=== PATIENT | male | born 1935 | race Caucasian/White ===

== ENCOUNTER 2017-02-21 | Emergency (ER) | payer MEDICARE, BC ==
[~2017-02-21] VITALS: Ht 167.6 cm; Wt 56.7 kg
[~2017-02-21] MED LIST: CELEBREX200 MG ORAL; HYDROCORTISONE TP; KEFLEX500 MG ORAL; VALACYCLOVIR500 MG ORAL; VALTREX1000 MG PO; ZOVIRAX OINT1 APPLI1 TOPIC
[2017-02-21] MEDS ORDERED: NKM (00:11)
[2017-02-21 00:55] VITALS: BP 148/74
[2017-02-21 00:56] VITALS: BP 148/74
--- NOTE | 2017-02-21 02:01 | Emergency Room Report ---
History of Present Illness General Chief Complaint: Laceration Source: Patient, Family Member Present Illness HPI 81-year-old male presents ED with laceration to face. States that he was closing the garage door tonight when the door accidentally hit him in the head. No reported LOC. Tetanus is up-to-date. Denies any headaches, blurry vision , nausea or vomiting. Denies neck pain. No other aggravating or relieving factors. Denies any other associated symptoms Allergies: Coded Allergies: ALCOHOL (Verified Allergy, Mild, Rash, 07/01/14) SULFA (SULFONAMIDE ANTIBIOTICS) (Verified Allergy, Mild, Hives, 07/01/14) Patient History Past Medical History: none Past Surgical History: none Pertinent Family History: none Social History: Denies: alcohol use, drug use, smoking Immunizations: UTD Reviewed Nursing Documentation: PMH: Agreed, PSxH: Agreed Review of Systems All Other Systems: negative except mentioned in HPI Physical Exam Vital Signs Date Time Temp Pulse Resp B/P Pulse Ox O2 Delivery O2 Flow Rate FiO2 02/21/17 00:04 97.7 58 18 167/88 98 Room Air Sp02 EP Interpretation: reviewed, normal General Appearance: no apparent distress, alert, GCS 15, non-toxic Head: normocephalic, other - 1.5cm vertical laceration medial to R eyebrow Eyes: bilateral eye PERRL, bilateral eye normal inspection ENT: normal ENT inspection Neck: normal inspection Respiratory: chest non-tender, lungs clear, normal breath sounds, speaking full sentences Cardiovascular #1: regular rate, rhythm, no edema Gastrointestinal: normal inspection Rectal: deferred Genitourinary: no CVA tenderness Musculoskeletal: normal inspection Neurologic: alert, oriented x3, responsive, motor strength/tone normal, sensory intact, speech normal Psychiatric: normal inspection Skin: normal inspection Lymphatic: normal inspection Procedures Laceration/Wound Repair Laceration/Wound Repair : Consent: Verbal Wound Location: head Wound's Depth, Shape: linear Wound Explored: clean Betadine Prep?: Yes Wound Debrided: minimal Wound Repaired With: Dermabond Layer Closure?: No Sterile Dressing Applied?: No Splint Applied?: No Sling Applied?: No Patient Tolerated: Well Complications: None Medical Decision Making Diagnostic Impression: Primary Impression: Laceration ER Course Hospital Course 81-year-old M presents to ED s/p laceration near R eyebrow Clinical course Patient placed on stretcher. After initial history and physical, wound is irrigated. laceration appears relatively superficial. Laceration repaired with dermabond w/o complication. Dressing applied. Diagnosis - laceration Stable and discharged to home. wound Care instructions given. Followup with PMD. Return to ED if any signs of infection develop Last Vital Signs Date Time Temp Pulse Resp B/P Pulse Ox O2 Delivery O2 Flow Rate FiO2 02/21/17 00:56 97.7 80 18 148/74 98 Room Air Status: improved Disposition: HOME, SELF-CARE Condition: Stable Referrals: NON PHYSICIAN (PCP) Patient Instructions: Facial Laceration, [id number] YONIS ZABALA M.D. February 21, 2017 02:01
== END 2017-02-21 00:57 | disposition home or self-care (01) ==
LOC: EMR 00:47
DX: S01.81XA Laceration without foreign body of other part of head, initial encounter (principal); W22.8XXA Striking against or struck by other objects, initial encounter; Y93.9 Activity, unspecified; Y92.9 Unspecified place or not applicable; Z88.2 Allergy status to sulfonamides; Z91.048 Other nonmedicinal substance allergy status